=== PATIENT | male | born 1945 | race Caucasian/White ===

== ENCOUNTER 2016-11-16 00:29 | Day surgery (SDC) | payer MEDICARE ==
[2016-11-16] VITALS (12 sets, daily range): BP systolic 122–153; BP diastolic 72–84; PULSE 46–68; RESP 11–22; O2SAT 94–100
[~2016-11-16] VITALS: Ht 177.8 cm; Wt 82.6 kg
[~2016-11-16 00:29] MED LIST: Albuterol Sulfate; DABI150C PO; FLC50T PO; LEVO50TA6 PO; Lactated Ringer's 1,000 ML IV ONE; METO50TA3 PO
[2016-11-16] MEDS ORDERED: fentaNYL-PF 50 mCg/mL 2 mL Inj ONE (00:30)
[2016-11-16] MEDS ORDERED: EPHEDrine/NS 5 mg/mL 5 mL Syringe ONE (00:30)
[2016-11-16] MEDS ORDERED: Ondansetron 2 mg/mL 2 mL Inj ONE (00:30)
[2016-11-16] MEDS ORDERED: Rocuronium 10 mg/mL 5 mL Inj ONE (00:30)
[2016-11-16] MEDS ORDERED: Protamine Sulfate 10 mg/mL 5 mL Inj ONE ×2 (00:30→15:49)
[2016-11-16] MEDS ORDERED: Propofol 10,000 mCg/mL 20 mL Inj ONE (00:30)
[2016-11-16] MEDS ORDERED: LEVO75TA4 PO (09:01)
[2016-11-16 09:05] LABS: BASOPHILS % (AUTO) 0.5 % (0-3); EOSINOPHILS % (AUTO) 8.5 % (0-5); MONOCYTES % (AUTO) 10.9 % (4-12); Mean Corpuscular Hemoglobin 34.8 pg (27.0-35.0); Mean Corpuscular Volume 98.6 fL (81-100); NEUTROPHILS % (AUTO) 55.7 % (40-74); Platelet Count 176 bil/L (150-400)
[2016-11-16 09:17] LABS: INR 0.94 ratio
[2016-11-16] MEDS ORDERED: GLUC1CAP PO (09:29)
[2016-11-16] MEDS ORDERED: Heparin 1,000 Unit/mL 10 mL Inj ONE ×2 (11:28→14:16)
[2016-11-16] MEDS ORDERED: Heparin 10,000 Unit/1,000 mL NS Premix IV ONE (12:04)
[2016-11-16] MEDS ORDERED: Lactated Ringer's 1,000 ML IV SCH (13:02)
[2016-11-16] MEDS ORDERED: Lactated Ringer's 500 ML IV PRN (13:02)
--- NOTE | 2016-11-16 13:02 | PCM.HPANE ---
Patient Data Surgeon Admitting Provider: Attending Provider:Dimitrios Lora MD Primary Care Physician:Debbie Pitts MD Other Provider:Jacklyn Maddox Anesthesia Reason for Visit A-FIB Ht/WT & BMI Body Mass Index Allergies Uncoded Allergies: nkda (Allergy, Unknown, 11/16/16) Past Anesthesia History Anesthesia History: Denies:: Abnormal Airway, Anesthesia Reactions, Difficult Intubation, Fam Anesthesia Reaction, Fam Malignant Hypertherm, Malignant Hyperthermia Diabetes History Hx Diabetes?: No Medications Reported Medications Glucosamine/Chondroitin Sulf A (Glucosamine-Chondroitin Cap)1 Each Capsule1 Each PO DAILY 11/16/16 Levothyroxine 75 Mcg [id number] Mcg PO DAILY Ref 0 11/16/16 Dabigatran Etexilate Mesylate (Pradaxa)150 Mg [id number] Mg PO BID 30 Days 11/15/16 Metoprolol Tartrate 50 Mg Tqpeut15 Mg PO BID 30 Days Ref 0 11/15/16 Flecainide Acetate 50 Mg [id number] Mg PO BID 30 Days 11/15/16 Discontinued Reported Medications Levothyroxine 50 Mcg [id number] Mcg PO DAILY Ref 0 11/15/16 [Albuterol Sulfate] No Conflict Check 11/15/16 History History of ENT Problems?: No HEENT History: Denies:: Abnormal Airway Cataracts Difficult Intubation Dysphagia Glaucoma Hearing Problem Sinus Problem TMJ Denture Type: None Teeth Condition: Within Normal Limits Hx of Heart Problems?: Yes Cardiovascular History: Positive for:: Atrial Fibrillation Denies:: AICD Abdominal Aortic Aneurism Cardiac Surgery Chest Pain Congestive Heart Failure Coronary Artery Disease Edema Heart Murmur Hypertension Irregular Heartbeat Pacemaker Peripheral Vascular Rheumatic Fever Thrombophlebitis Valvular Heart Disease Hx of Respiratory Problem?: Yes Respiratory History: Positive for:: Use of Inhalers / NEBS Denies:: Asthma COPD Chest Surgery Cough Dyspnea Emphysema Hemoptysis Oxygen Administration Pneumonia Pulmonary Embolism Tuberculosis Use of C-PAP Machine Hx Neurologic Problems?: No Neurological History: Denies:: Alzheimer's Disease CVA Dementia Dizziness Headaches Multiple Sclerosis Parkinson's Disease Peripheral Neuropathy Seizures TIA Hx of GI Problems?: No Gastrointestinal History: Denies:: Cirrhosis Diverticulitis Gall Bladder Disease Gastroesphageal Reflux Gastrointestinal Bleeding Heartburn Hepatitis Hiatal Hernia Liver Disease Rectal Bleeding Hx of Problems?: No Hx Musculoskeletal Problems?: No Hx Surgeries?: Yes Hx Diabetes: No Stop/Bang Risk Assessment Category Category 1A: Patient has history of documented sleep apnea, and HAS NOT received any narcotic, sedative or anesthesia administration during this stay. Category 1B: Patient has history of documented sleep apnea, and HAS received any narcotic , sedative or anesthesia administration during this stay Category 2: Patient has SUSPECTED Obstructive Sleep Apnea, and HAS received any narcotic , sedative or anesthesia administration during this stay. Category 3: Patient has SUSPECTED Obstructive Sleep Apnea and HAS NOT received narcotic, sedative or anesthesia administration during this stay. Category 4: Outpatient in Procedural Areas with known sleep apnea or who screen positive for High Risk via the STOP/BANG questionnaire. Exam Exam General Appearance: Alert, Oriented X3, Cooperative, No Acute Distress HEENT/AIRWAY: MP 2 Lungs: Clear to Auscultation Heart: Exam Unremarkable Plan Impression Patient chart reviewed, patient interviewed and anesthestic plan with risks, benefits, and alternatives discussed, and informed consent obtained. ASA Physical Status: ASA2 Mod Systemic Disease Anesthetic Support Modalities: Arterial Line Anesthetic Plan: GA Bene/Risks/Altern/Consents: Yes HP Complete Prior to Induction: Yes Josue Lua MD Nov 16, 2016 07:54
[2016-11-16] MEDS ORDERED: MetoCLOpramide 5 mg/mL 2 mL Inj IVPUSH PRN (13:05)
[2016-11-16] MEDS ORDERED: EPHEDrine Sulfate 50 mg/mL Inj IVPUSH PRN (13:05)
[2016-11-16] MEDS ORDERED: Ondansetron 2 mg/mL 2 mL Inj IVPUSH PRN (13:05)
[2016-11-16] MEDS ORDERED: Phenylephrine 10,000 mCg/mL Inj IVPUSH PRN (13:05)
[2016-11-16] MEDS ORDERED: Dexamethasone 4 mg/mL Inj IVPUSH PRN (13:05)
[2016-11-16] MEDS ORDERED: fentaNYL-PF 50 mCg/mL 2 mL Inj IVPUSH PRN (13:05)
--- NOTE | 2016-11-16 17:05 | PCM.ANEP1 ---
Post Anesthesia PACU Phase 1 Assessment Vital Signs Vital Signs Date Time Temp Pulse Resp B/P Pulse Ox O2 Delivery O2 Flow Rate FiO2 11/16/16 09:08 36.4 46 22 132/73 99 Room Air Anesthetic Administered: GA Level of Alertness: Awake, talking Pain: No Nausea or Vomiting: No CV Function & Hydration Stable: Yes Airway Device: Oxygen Delivery: Room Air Lungs: Clear to Auscultation PACU Phase 2 Assessment Complications: No Patient Instructions Provided: N/A Josue Lua MD Nov 16, 2016 17:05
[2016-11-16] MEDS ORDERED: Dabigatran 150 mg Capsule PO ONE (18:00)
--- NOTE | 2016-11-16 18:04 | NUR ---
Rt radial arterial line d/c intact, manual pressure held x 10 min, no bleeding/hematoma noted.
--- NOTE | 2016-11-16 18:30 | PROCED ---
[address] [address] PROCEDURE NOTE PATIENT: BRIELLE MERCEDES : 1945 MR#: [id number] ADMIT: 11/16/2016 JOB ID: [id number] DATE OF SERVICE: 11/16/2016 PREOPERATIVE DIAGNOSIS(ES): Drug refractory paroxysmal atrial fibrillation. POSTOPERATIVE DIAGNOSIS(ES): 1. Paroxysmal atrial fibrillation. 2. Paroxysmal atrial flutter noted during pace. PROCEDURES PERFORMED: 1. Comprehensive electrophysiology study. 2. Three-dimensional electroanatomic mapping using the CARTO 3 system. 3. Intracardiac echocardiography. 4. Transseptal puncture x2. 5. Atrial fibrillation ablation with pulmonary vein isolation. 6. Atrial flutter ablation with cavotricuspid isthmus ablation (additional atrial focus ablation). 7. Barium esophagram. 8. Fluoroscopy. SURGEON: Dimitrios Lora MD, electrophysiology attending ASSISTANTS: 1. Kelvin Worley. 2. Manuel Almeida PA-C ANESTHESIA: General endotracheal anesthesia was undertaken for this case. INDICATION: The patient is a pleasant 70-year-old man with a structurally normal heart who has drug refractory paroxysmal atrial fibrillation. After discussion of the risks and benefits of catheter based mapping and ablation, he opted to proceed. PROCEDURAL DESCRIPTION: Following informed consent, the patient was taken to the EP laboratory in a fasting nonsedated state, where he was prepped and draped in the usual sterile fashion. He underwent a preprocedural transesophageal echocardiogram by Dr. Trevino, confirming lack of intracardiac thrombus. Please see separate dictated report for the details of that procedure. The bilateral groins were then infiltrated with 1% lidocaine; then, using modified Seldinger technique, two 8-Malaysian sheaths were inserted through the right femoral vein and a 7- and 10.5-Malaysian sheath were inserted through the left femoral vein. Under fluoroscopic guidance, a deflectable decapolar catheter was advanced to the coronary sinus with the most proximal bipoles at the os of the sinus. An intracardiac echocardiography probe was advanced to the RV outflow tract and used to visualize the pericardial space. No effusion was noted. The ICE probe was pulled back into the right atrium and used to visualize the interatrial septum in assistance of transseptal puncture. Two transseptal punctures were performed in an identical fashion. Each of the short 8-Malaysian sheaths was exchanged over a long wire for a Lemos sheath dilator and Sunbright Brockenbrough needle. The entire system was used to engage the interatrial septum; then, under fluoroscopic guidance and pressure guidance, the septum was traversed twice to deploy the two Lemos sheaths into the left atrium. The patient was heparinized with a goal ACT of 350-400 seconds for the entire time we were in the left atrium following the first and preceding the second transseptal puncture. A re-survey of the pericardial space showed no , so the two Lemos sheaths and an F curve SmartTouch SF ablation catheter was passed, as well as a 20 pole PentaRay catheter. A three-dimensional electroanatomic map of the left atrium and four pulmonary veins was created using the Olocode 3 system. The pulmonary veins were isolated for entrance and exit block starting with the left upper, then left lower, right upper, and right lower pulmonary veins. Once entrance and exit block was confirmed in all four pulmonary veins, we disengage from the left atrium. Of note, the patient did undergo a barium esophagram delineating the course of the esophagus down the midline of the left atrium at a safe distance from the posterior aspect of the pulmonary veins. During the course of the case the patient repeatedly went into an isthmus dependent, typical appearing flutter. We therefore prepared for atrial flutter ablation. The two long Ulrich sheaths were exchanged over a long wire for short 9-Malaysian sheaths through which a Livewire 20 pole catheter was re-deployed and advanced to encircle the tricuspid anulus. The same ablation catheter was advanced into the right atrium and used to create a three-dimensional electroanatomic map of the cavotricuspid isthmus. For catheter stability and manipulation the short 9-Malaysian sheath was exchanged over a long wire for an SR zero long sheath through which the ablation catheter was redeployed a linear series of ablations was performed from the ventricular to the IVC aspect of the cavotricuspid isthmus while pacing the coronary sinus os and monitoring the atrial activation pattern on the Livewire catheter. Through the process of this a medial to lateral block was achieved. Lateral to medial was confirmed. A 20-minute waiting period was undertaken during which a bidirectional block was confirmed. The patient's heparin was reversed with protamine. All catheters and sheaths were removed. Manual pressure was held for hemostasis. The patient was transferred to the [facility] for monitoring and bedrest. COMPLICATIONS: None. ESTIMATED BLOOD LOSS: 20-30 mL. FINDINGS: 1. Baseline rhythm is sinus with an RR interval of 1271 msec, a VT of 230 msec, QRS 104 msec, QT 509 msec. 2. Intracardiac intervals: AH interval 116 msec, HV 65 msec. 3. Retrograde conduction: VA Wenckebach is seen at 470 msec. Atrial activation is concentric. 4. Antegrade conduction: AV Wenckebach seen at 500 msec. 5. Pulmonary vein isolation was with entrance and exit block as described above. 6. Atrial flutter ablation: Cavotricuspid isthmus ablation with bidirectional block specifically. Transisthmus time is 191 msec in both directions. IMPRESSION: Successful pulmonary vein isolation procedure for paroxysmal atrial fibrillation and cavotricuspid isthmus ablation for typical atrial flutter. PLAN: 1. Bed rest x4 hours. 2. Resume Pradaxa with anticoagulation to resume in the postop area. 3. Continue flecainide and beta blockade. 4. Protonix 40 mg p.o. daily x1 month. 5. Monitoring overnight and anticipate discharge tomorrow. 6. Follow up with Manuel Almeida PA-C in four weeks. 7. Follow up with me in three months. ATTENDING STATEMENT: Dimitrios Lora MD, electrophysiology attending, was present for and supervised/performed all aspects of this procedure.
--- NOTE | 2016-11-16 18:57 | NUR ---
Pt transferred to [facility] room 2024, VSS, bilateral groin sites CDI with no bleeding/hematomas noted. Report and pt handoff given to Suzanna JO.
--- NOTE | 2016-11-16 23:30 | NUR ---
Groin Site Pt stood at the bedside, after bedrest complete, Pt took a few then his right groin site started leaking moderate amount of sanguineous drainage. Pt sat back down on the bed. Small hematoma less than a quarter palpated on the right side, direct pressure held on right groin site for 10 minutes. Right sided hematoma resolved. New dressing and 5 lb. sand bag applied and Pt put back on bedrest for 2 more hours. Left groin site remained stable, dressing CDI with no hematoma noted with no active bleeding or drainage noted. Pt denies pain. Tele SR 60s per [employer] Worker. VS stable.
--- NOTE | 2016-11-17 | NUR ---
Assumed care of patient
[2016-11-17 03:32] VITALS: BP 124/70; PULSE 67; RESP 18; O2SAT 97
--- NOTE | 2016-11-17 04:54 | NUR ---
Groin/Pain/Tele Pt up with moody still attached and he was able to ambulate around the room without s/sx of bleeding noted to groin sites. Groin soft, tender, and no noted hematoma present. Dressing C/D/I x 2. Denies dizziness, lightheadedness and headache. Moody removed with output of 800ml. Pt able to urine on his own producing 280 ml at this time. Pt c/o R IV tingling and throat pain 06/06-Ibuprofen 600mg administered. R IV dc'd without redness, infiltration or swelling. Tele SR HR 65 per teletypesetter monitor. VSS. Care continues.
[2016-11-17 05:42] VITALS: PULSE 64
[2016-11-17] MEDS ORDERED: Pantoprazole 40 mg ER24 Tablet PO SCH (06:30)
[2016-11-17 07:57] VITALS: PULSE 65
[2016-11-17] MEDS ORDERED: Dabigatran 150 mg Capsule PO SCH (08:30)
--- NOTE | 2016-11-17 09:00 | PCM.DIMED ---
Discharge Instructions Date of Service Nov 17, 2016 Dates of Hospitalization Discharge Diagnosis Discharge Diagnosis Paroxysmal Atrial Fibrillation Diet Discharge Diet: No restrictions, Heart Healthy Activity Discharge Activity: Other (To prevent bleeding, do not lift, push or pull more than 10 lbs for 5 days. To prevent infection, do not sit in a bath tub, hot tub or pool for 5 days.) Call your provider Call your provider for: Fever or Chills, Bleeding, Chest pain, Excessive diarrhea, Weakness (unilateral) Patient Instructions Mid-level Provider (F9): Manuel Almeida PA-C Follow-up with Mid-level in: 5 weeks Manuel Almeida PA-C Nov 17, 2016 09:00
[2016-11-17 09:16] VITALS: BP 132/66; PULSE 67; RESP 18; O2SAT 98
[2016-11-17] MEDS ORDERED: METO25TA6 PO (09:22)
[2016-11-17] MEDS ORDERED: PANT40TA3 PO (09:22)
[2016-11-17] MEDS ORDERED: WARF5TAB7 PO (09:22)
--- NOTE | 2016-11-17 10:02 | DIS ---
[address] [address] DISCHARGE SUMMARY PATIENT: BRIELLE MERCEDES : 1945 MR#: [id number] ADMIT: 11/16/2016 JOB ID: [id number] DIS: 11/17/2016 REASON FOR ADMISSION: Atrial fibrillation ablation procedure. CHIEF COMPLAINT: Recurrent, paroxysmal, symptomatic atrial fibrillation. HISTORY: The patient is a pleasant 70-year-old man with a structurally normal heart and a recent negative stress testing and paroxysmal atrial fibrillation for which he was begun on flecainide and a beta-angie, but despite this he continued to have nearly weekly episodes of atrial fibrillation. He is symptomatic with fatigue and palpitations but not near-syncope or syncope. He was admitted for an ablation procedure. COURSE IN THE HOSPITAL: The patient was admitted through the [facility] and taken to the shrimp pond laborer, where he was placed under general anesthesia by the anesthesiologist. He then had a SENTHIL which ruled out the presence of atrial thrombi. The ablation procedure was then undertaken and completed without incident. He was also observed to have typical right atrial isthmus dependent flutter and so a flutter line ablation was also done. Following the procedure, the right and left femoral venous sheaths were removed, hemostasis was obtained and he was awakened from anesthesia. He was transferred back to the [facility] for further recovery and then brought up to the [facility] for overnight observation. After his time analysis clerk horizontal in bed, he got up and walked in the room and had bleeding from one of the femoral puncture sites. Hemostasis was obtained again by direct pressure for 10 minutes and then a 5 pound sandbag was applied for two hours. Afterwards he was able to be up and ambulating without difficulty and no more bleeding and there was no hematoma. In the morning he felt well for discharge home. The Romero catheter had been removed and he had been able to urinate spontaneously. He denied any chest pain and remained in sinus rhythm. DISPOSITION: The patient was discharged home in good condition with a follow up appointment at the [facility] Cardiology office in one month. He wishes to be transitioned to warfarin from Pradaxa because he does not have insurance coverage for the Pradaxa. We will start him on warfarin this morning and have him get his INR checked tomorrow afternoon after two doses. Then after the weekend, he will have it checked again. Pradaxa will be taken for up to three days while he transitions to warfarin. Otherwise he will follow his heart healthy diet and take medications as prescribed. DISCHARGE MEDICATIONS: 1. Metoprolol tartrate dose reduced to 25 mg b.i.d. 2. Pantoprazole ER 40 mg daily for one month only. 3. Warfarin 5 mg daily or as directed by his Anticoagulation Clinic. 4. Pradaxa 150 mg b.i.d. for three days while transitioning to warfarin. 5. Flecainide 50 mg b.i.d. 6. Glucosamine chondroitin capsules 1 daily. 7. Levothyroxine 75 mcg daily. FINAL DIAGNOSES: Paroxysmal atrial fibrillation.
--- NOTE | 2016-11-17 11:12 | DRSVH ---
[facility] [address] [place] [address] Echocardiogram Report Name: BRIELLE MERCEDES Study Date: 11/16/2016 Height: 70 in Hospital Exam Location: [facility] Weight: 181 lb Gender: Male BSA: 2.0 m2 : 1945 Age: 70 yrs BP: 115/67 mmHg Reason For Study: Atrial Fibrillation Ordering Physician: Performed By: Diana Long Referring Physician: SEE JONES Interpretation Summary No thrombus is detected in the left atrial appendage. No left atrial mass or thrombus visualized. The interatrial septum is intact with no evidence for an atrial septal defect. The left ventricle is normal in size. The ejection fraction is estimated to be 50-55%. There is mild to moderate mitral regurgitation. The aortic root diameter (4.4 cm). The ascending aorta is moderately enlarged (4.2 cm. This is unchanged compared to the previous study). Procedure: A 2D transesophageal echocardiogram with spectral and color flow Doppler was performed. The transesophageal probe was passed without difficulty. Sedation was managed by anesthesiologist; see anesthesiology notes for details. Informed consent for Transesophageal Echocardiogram, and use of a contrast agent as needed, was obtained prior to the procedure. The patient was brought to the cardiac catheterization lab in a fasting state. The usual views were obtained; basal, mid-esophageal, transgastric and aortic views. The patient's vital signs, including blood pressure, heart rate, pulse oximetry and cardiac rhythm were monitored throughout the procedure and remained stable. The patient tolerated the procedure well without evidence of orophangeal or esophageal trauma. There were no complications. Left Ventricle: The left ventricle is normal in size. The ejection fraction is estimated to be 50-55%. There are no focal wall motion abnormalities. Right Ventricle: The right ventricle is grossly normal size. Right ventricular systolic function is borderline reduced. Atria: No thrombus is detected in the left atrial appendage. No left atrial mass or thrombus visualized. The left atrial size is normal. Right atrial size is normal. The interatrial septum is intact with no evidence for an atrial septal defect. Mitral Valve: The mitral valve leaflets are slightly calcified. There is mild to moderate mitral regurgitation. Aortic Valve: The aortic valve is trileaflet. The aortic valve opens well. There is no aortic valve stenosis. No aortic regurgitation is present. Tricuspid Valve: The tricuspid valve is normal. Pulmonic Valve: The pulmonic valve is normal in structure and function. There is trace pulmonic regurgitation. Great Vessels: The aortic root is moderately dilated. The ascending aorta is moderately enlarged. This is unchanged compared to the previous study. MMode/2D Measurements & Calculations Ao root diam: 4.4 cm Reading Physician:ERIK
[2016-11-17 12:20] VITALS: BP 130/74; PULSE 65; RESP 18; O2SAT 99
--- NOTE | 2016-11-17 13:06 | NUR ---
Discharge of patient reviewed discharge instruction with patient and patient's . both verbalized understanding. Pt discharge by walking out of hospital with instructions. Prescriptions sent to pharmacy. IV and Telemetry previously discontinued. pt left with to home self care.
== END 2016-11-17 13:00 | disposition home or self-care (01) ==
LOC: SPI 00:29 → PCC 19:37 → SPI 11-17 13:00
PROVIDERS: ATTEND Internal Medicine Cardiovascular Disease
DX: I48.0 Paroxysmal atrial fibrillation (principal); I48.3 Typical atrial flutter; Z79.899 Other long term (current) drug therapy; Z79.01 Long term (current) use of anticoagulants
CPT/HCPCS: 36415; 80048; 85025; 85610; 93005; 93613; 93655; 93656; 93662; C1730; C1731; C1732; C1759; C1893; C1894; C8925; J1200; J1644; J2250; J2405; J2704; J2720; J3010; J7120